=== PATIENT | female | born 1950 | race Caucasian/White ===

== ENCOUNTER 2022-01-29 12:18 | Observation (INO) | payer MEDICARE, OTHER ==
[2022-01-29 12:46] LABS: #Basophils 0.1 10x3/uL (0.0-0.2); #Eosinphils 0.1 10x3/uL (0.0-0.5); #Monocytes 0.5 10x3/uL (0.0-1.1); #Neutrophils 3.8 10x3/uL (1.5-8.4); %Basophils 0.7 % (0.0-2.0); %Eosinophils 1.9 % (0.0-6.0); %Lymphocytes 33.3 % (18.0-47.0); %Monocytes 6.8 % (0.0-10.0); %Neutrophils 57.2 % (40.0-75.0); Mean Corpuscular HGB CONC 34.7 g/dL (32.0-36.0); Mean Corpuscular Hemoglobin 30.6 pg (27.0-33.0); Mean Corpuscular Volume 88.2 fl (81.6-98.3); Mean Platelet Volume 9.5 fl (7.4-10.4); Platelet Count 217 10x3/uL (150-450); RBC Distribution Width 11.7 % (11.5-14.5); Red Blood Cell (RBC) Count 4.25 10x6/uL (3.90-5.03); White Blood Cell (WBC) Count 6.7 10x3/uL (3.5-10.5)
[2022-01-29 12:55] LABS: INR-International Normal Ratio 0.9; PTT 26.2 sec (22.0-33.0); Prothrombin Time 10.2 sec (9.5-12.1)
[2022-01-29 13:12] LABS: ALT (SGPT) 15 U/L (8-55); AST (SGOT) 23 U/L (5-34); Albumin 4.2 g/dL (3.4-4.8); Alkaline Phosphatase 57 U/L (40-110); Anion Gap 12 mmol/L (10-20); BUN (Urea Nitrogen) 24 mg/dL (9.8-20.1); Bilirubin, Total 1.7 mg/dL (0.2-1.2); CK (CPK) 90 U/L (29-168); Calc. Creatinine Clearance 0 mL/min (70-130); Calcium 9.6 mg/dL (7.8-10.44); Carbon Dioxide 24 mmol/L (23-31); Chloride 103 mmol/L (98-107); Estimated GFR 49; Globulin 2.9 g/dL (2.4-3.5); Glucose 101 mg/dL (83-110); Protein, Total 7.1 g/dL (5.8-8.1); Sodium 135 mmol/L (136-145)
[2022-01-29] MEDS ORDERED: Aspirin Chewable 81 MG TAB ONE (13:14)
[2022-01-29] MEDS ORDERED: Labetalol HCl 100 MG/20 ML VIAL ONE (13:14)
[2022-01-29] MEDS ORDERED: Iopamidol 370 76% 100 ML VIAL ONE ×2 (14:23)
[2022-01-29] MEDS ORDERED: Enoxaparin Sodium 40 MG/0.4 ML SYRINGE SC SCH (14:45)
[2022-01-29] MEDS ORDERED: Morphine 4 MG/ML VIAL ONE (15:06)
[2022-01-29] MEDS ORDERED: Ondansetron PF 4 MG/2 ML Vial ONE (15:06)
[2022-01-29 16:02] LABS: Troponin I Less than 0.010 ng/mL (< 0.028)
[2022-01-29 16:18] LABS: Bilirubin Neg (Negative); Blood, Urine 10 (Negative); Clarity Clear (Clear); Glucose, Urine (Dipstick) Normal (Negative); Ketone, Urine Negative (Negative); Leukocyte 25 (Negative); Nitrite Negative (Negative); Protein, Urine (Dipstick) Negative (Neg-Trace); Specific Gravity, Urine 1.005 (1.005-1.030); Urobilinogen Normal mg/dL (Less than 2); pH, Urine 6.5 (5.0-9.0)
[2022-01-29 16:37] LABS: Bacteria/HPF Rare-Few HPF (None Seen); RBC/HPF 0-3 HPF (0-3); Squamous Epithelial 0-3 HPF (0-3); WBC/HPF 0-3 HPF (0-3)
[2022-01-29] MEDS ORDERED: Acetaminophen 325 MG TAB ONE (17:57)
[2022-01-29 19:15] LABS: Troponin I Less than 0.010 ng/mL (< 0.028)
[2022-01-29] MEDS ORDERED: HYDROcodone/Acetaminophen 10/325 mg Tablet PO PRN (20:29)
[2022-01-29 20:38] VITALS: BMI 29.0
[2022-01-29] MEDS ORDERED: Escitalopram Oxalate 10 mg Tablet PO SCH (21:00)
[2022-01-29] MEDS ORDERED: Senokot S 8.6-50 MG TAB PO SCH ×2 (21:00)
[2022-01-29] MEDS ORDERED: Melatonin 3 MG TAB PO SCH (21:00)
[2022-01-29] MEDS: HYDROcodone/Acetaminophen 10/325 mg Tablet PO PRN (21:04)
[2022-01-29] MEDS: Acetaminophen 325 MG TAB PO PRN (23:35)
[2022-01-29] MEDS: Liothyronine Sodium 5 MCG TAB PO SCH (23:42)
[2022-01-29] MEDS ORDERED: CeleCOXIB 100 MG CAP PO SCH (23:45)
[2022-01-30] LABS: Hemoglobin A1c 4.8 % (4.0-6.0)
[2022-01-30] MEDS: HYDROcodone/Acetaminophen 10/325 mg Tablet PO PRN ×2 (02:40→10:47)
[2022-01-30 04:58] LABS: #Basophils 0.1 10x3/uL (0.0-0.2); #Eosinphils 0.2 10x3/uL (0.0-0.5); #Monocytes 0.5 10x3/uL (0.0-1.1); #Neutrophils 3.9 10x3/uL (1.5-8.4); %Basophils 0.7 % (0.0-2.0); %Eosinophils 2.1 % (0.0-6.0); %Lymphocytes 34.5 % (18.0-47.0); %Monocytes 7.2 % (0.0-10.0); %Neutrophils 55.2 % (40.0-75.0); Hemoglobin 12.9 g/dL (12.0-15.5); Mean Corpuscular HGB CONC 34.7 g/dL (32.0-36.0); Mean Corpuscular Hemoglobin 30.8 pg (27.0-33.0); Mean Corpuscular Volume 88.8 fl (81.6-98.3); Mean Platelet Volume 9.5 fl (7.4-10.4); Platelet Count 234 10x3/uL (150-450); RBC Distribution Width 11.8 % (11.5-14.5); Red Blood Cell (RBC) Count 4.19 10x6/uL (3.90-5.03)
[2022-01-30 05:17] LABS: Anion Gap 12 mmol/L (10-20); BUN (Urea Nitrogen) 18 mg/dL (9.8-20.1); Calc. Creatinine Clearance 61 mL/min (70-130); Calcium 9.4 mg/dL (7.8-10.44); Carbon Dioxide 25 mmol/L (23-31); Cardiac Risk 3.1 (Less than 4.5); Chloride 106 mmol/L (98-107); Cholesterol 193 mg/dl (< 200 Desired); Estimated GFR 57; Glucose 98 mg/dL (83-110); HDL Cholesterol 62 mg/dL (>60 Neg Risk); LDL Cholesterol, Calculated 114 mg/dL; Potassium 3.7 mmol/L (3.5-5.1); Sodium 139 mmol/L (136-145); Triglycerides 84 mg/dL (Less than 150)
[2022-01-30] MEDS: Acetaminophen 325 MG TAB PO PRN (06:07)
[2022-01-30] MEDS: Levothyroxine Sodium 100 MCG TAB PO SCH ×2 (06:57→16:57)
[2022-01-30] MEDS: Levothyroxine Sodium 75 MCG TAB PO SCH ×2 (06:57→16:58)
[2022-01-30] MEDS ORDERED: Lisinopril 10 MG TAB PO SCH (09:00)
[2022-01-30] MEDS ORDERED: CeleCOXIB 100 MG CAP PO SCH (09:00)
[2022-01-30] MEDS ORDERED: Stress 600 With Zinc 1 TAB PO SCH (09:00)
[2022-01-30] MEDS ORDERED: Lisinopril 2.5 MG TAB PO SCH (09:00)
[2022-01-30] MEDS ORDERED: Aspirin 81 mg Enteric Coated Tablet PO SCH ×2 (09:00→21:00)
[2022-01-30] MEDS ORDERED: Cholecalciferol 1,000 UNITS (25 MCG) TAB PO SCH (09:00)
[2022-01-30] MEDS: Liothyronine Sodium 5 MCG TAB PO SCH (10:50)
[2022-01-31 02:39] VITALS: BP 154/79; TEMP 98.2
== END 2022-01-30 16:35 | disposition home or self-care (01) ==
LOC: CSHERS 12:18 → CSHTELE 14:36
PROVIDERS: ADMIT Hospitalist; ATTEND Hospitalist
DX: R20.0 Anesthesia of skin (principal); I10 Essential (primary) hypertension; E78.5 Hyperlipidemia, unspecified; E03.9 Hypothyroidism, unspecified; M19.90 Unspecified osteoarthritis, unspecified site; R51.9 Headache, unspecified; Z86.73 Personal history of transient ischemic attack (TIA), and cerebral infarction without residual deficits; Z79.899 Other long term (current) drug therapy; Z79.82 Long term (current) use of aspirin; Z79.890 Hormone replacement therapy
CPT/HCPCS: 0042T; 70450; 70551; 80048; 80061; 82550; 82962; 83036; 84484 ×2; 85025; 85610; 85730; 93005; 93306; 93970; 94760; 96374; 96375; 99285; G0378 ×3; 36415; 36416; 80053; 81003; 81015; 84443; J2270; J2405; Q9967